=== PATIENT | male | born 1960 | race Caucasian/White ===

== ENCOUNTER 2018-01-18 17:35 | Emergency (ER) | payer OTHER ==
[2018-01-18] MEDS: IBUPROFEN 600 MG TAB PO (18:23)
== END 2018-01-18 19:02 | disposition home or self-care (01) ==
LOC: FTE 17:35
DX: S69.91XA Unspecified injury of right wrist, hand and finger(s), initial encounter (principal); W22.8XXA Striking against or struck by other objects, initial encounter; Y92.9 Unspecified place or not applicable
CPT/HCPCS: 73130; 73130-RT; 99283-25